=== PATIENT | male | born 1990 ===

== ENCOUNTER 2018-09-24 09:27 | Emergency (ER) | payer OTHER ==
[2018-09-24 09:50] VITALS: TEMP 97.8; BMI 43.0
--- NOTE | 2018-09-24 09:51 | ED PDOC ---
Arrival/HPI - General Chief Complaint: Back Pain Historian: Patient - History of Present Illness Narrative History of Present Illness (Text): 09/24/18 09:51 28 year old male, with a past medical history of appendectomy, who presents to the emergency department complaining of right sided flank pain, 10/10 in severity, that is exacerbated with deep breaths and coughing, onset yesterday. Patient reports yesterday, he felt cramping and spasms in that region, in which he reports taking Tylenol, with no relief. He reports worsened pain when he arrived home and states earlier this morning, he sat on the toilet, and had difficulty getting up. He reports when he did get up, he felt lightheaded. Patient endorses a "watery vomit" earlier this morning due to the amount of water he drank". He denies any fever, chills, nausea, headache, dizziness, chest pain, dysuria, or any other complaints. Time/Duration: 24 hours Symptom Onset: Gradual Symptom Course: Unchanged Activities at Onset: Light Context: Home Past Medical History - Provider Review Nursing Documentation Reviewed: Yes - Infectious Disease Hx of Infectious Diseases: None - Psychiatric Hx Substance Use: No - Surgical History Hx Appendectomy: Yes - Anesthesia Hx Anesthesia: No Family/Social History - Physician Review Nursing Documentation Reviewed: Yes Family/Social History: Unknown Family HX Smoking Status: Never Smoked Hx Alcohol Use: Yes Frequency of alcohol use: Socially Hx Substance Use: No Allergies/Home Meds Allergies/Adverse Reactions: Allergies No Known Allergies Allergy (Verified 09/24/18 09:34) Review of Systems - Physician Review All systems were reviewed & negative as marked: Yes - Review of Systems Constitutional: absent: Fevers Cardiovascular: absent: Chest Pain Gastrointestinal: Vomiting. absent: Abdominal Pain, Diarrhea, Nausea Genitourinary Male: absent: Dysuria Musculoskeletal: Back Pain. absent: Neck Pain Neurological: absent: Headache, Dizziness Physical Exam Vital Signs Reviewed: Yes Vital Signs Temp Pulse Resp BP Pulse Ox 09/24/18 09:36 97.8 F 70 20 120/82 99 Temperature: Afebrile Blood Pressure: Normal Pulse: Regular Respiratory Rate: Normal Appearance: Positive for: Well-Appearing, Non-Toxic, Comfortable, Uncomfortable Pain Distress: None Mental Status: Positive for: Alert and Oriented X 3 - Systems Exam Head: Present: Atraumatic, Normocephalic Pupils: Present: PERRL Extroacular Muscles: Present: EOMI Conjunctiva: Present: Normal Mouth: Present: Moist Mucous Membranes Neck: Present: Normal Range of Motion Respiratory/Chest: Present: Clear to Auscultation, Good Air Exchange. No: Respiratory Distress, Accessory Muscle Use Cardiovascular: Present: Regular Rate and Rhythm, Normal S1, S2. No: Murmurs Abdomen: No: Tenderness, Distention, Peritoneal Signs Back: Present: CVA Tenderness (right sided) Upper Extremity: Present: Normal Inspection. No: Cyanosis, Edema Lower Extremity: Present: Deformity (Gross deformity noted on right knee, no tenderness to palpation). No: Edema Neurological: Present: GCS=15, Speech Normal Skin: Present: Warm, Dry, Normal Color. No: Rashes Psychiatric: Present: Alert, Oriented x 3, Normal Insight, Normal Concentration Medical Decision Making ED Course and Treatment: 09/24/18 09:49 Impression: 28 year old male presents to the emergency department complaining of right sided flank pain, 10/10 in severity, that is exacerbated with deep breaths and coughing, onset yesterday. Differential Diagnosis included but are not limited to: Plan: -- Urinalysis -- CT abd & pelvis -- Toradol -- Valium -- IV Fluids -- UA -- Reassess and disposition Prior Visits: Notes and results from previous visits were reviewed. Progress Notes: - Scribe Statement The provider has reviewed the documentation as recorded by the Mariaibgen Mcdowell All medical record entries made by the Scribe were at my direction and personally dictated by me. I have reviewed the chart and agree that the record accurately reflects my personal performance of the history, physical exam, medical decision making, and the department course for this patient. I have also personally directed, reviewed, and agree with the discharge instructions and disposition. Disposition/Present on Arrival - Present on Arrival Any Indicators Present on Arrival: No History of DVT/PE: No History of Uncontrolled Diabetes: No Urinary Catheter: No History of Decub. Ulcer: No History Surgical Site Infection Following: None - Disposition Have Diagnosis and Disposition been Completed?: Yes Diagnosis: Flank pain Disposition: HOME/ ROUTINE Disposition Time: 13:44 Patient Plan: Discharge Condition: IMPROVED Discharge Instructions (ExitCare): Flank Pain (DC), Nausea and Vomiting, Adult (DC) Print Language: ESTONIAN Additional Instructions: All medical record entries made by the Scribe were at my direction and personally dictated by me. I have reviewed the chart and agree that the record accurately reflects my personal performance of the history, physical exam, medical decision making, and the department course for this patient. I have also personally directed, reviewed, and agree with the discharge instructions and disposition. Please follow up your PCP in 1 week Prescriptions: Cyclobenzaprine [Cyclobenzaprine HCl] 10 mg PO PRN PRN #12 tab PRN Reason: Muscle Spasm Naproxen 500 mg PO Q6H #12 tab Referrals: Marta Knight MD [Medical Doctor] - Follow up with primary [facility] at [facility] [Outside] - Follow up with primary Forms: [facility] (Hebrew), SCHOOL NOTE, WORK NOTE
[2018-09-24 10:18] LABS: URINE APPEARANCE CLEAR (CLEAR); URINE BILIRUBIN NEGATIVE (NEGATIVE); URINE BLOOD NEGATIVE (NEGATIVE); URINE COLOR YELLOW (YELLOW); URINE GLUCOSE (UA) NEGATIVE (NEGATIVE); URINE LEUKOCYTE ESTERASE NEGATIVE Leu/uL (NEGATIVE); URINE PROTEIN NEGATIVE mg/dL (<30 mg/dL); URINE UROBILINOGEN 0.2 E.U./dL (<1 E.U./dL)
--- NOTE | 2018-09-24 11:09 | CT ---
PROCEDURE: CT Abdomen and Pelvis without Oral or IV contrast. HISTORY: r flank pain...r/o kidney stones COMPARISON: None available. TECHNIQUE: Contiguous axial images of the abdomen and pelvis. No oral or IV contrast administered. Coronal and Sagittal reformats generated and reviewed. Radiation dose: Total exam DLP = 1598.24 mGy-cm. This CT exam was performed using one or more of the following dose reduction techniques: Automated exposure control, adjustment of the mA and/or kV according to patient size, and/or use of iterative reconstruction technique. FINDINGS: There is limited evaluation of the solid organs without the administration of IV contrast. LOWER THORAX: No visible consolidation, pleural effusion, or pneumothorax. LIVER: Hypoattenuation of the liver compatible with hepatic steatosis. Approximately 3.5 x 8.7 cm hyperdensity along the anterior right hepatic lobe in posterior aspect left hepatic lobe near the gallbladder fossa; possibly focal fatty sparing. GALLBLADDER AND BILE DUCTS: Unremarkable. PANCREAS: Unremarkable. SPLEEN: 10 mm probable splenule. ADRENALS: Unremarkable. KIDNEYS AND URETERS: No hydronephrosis or obstructing renal calculus. BLADDER: Mildly thick-walled urinary bladder may be exaggerated by under distension. REPRODUCTIVE: Unremarkable. APPENDIX: No secondary signs of acute appendicitis. BOWEL: The stomach is nondistended. Lack of oral contrast limits evaluation for bowel pathology. The bowel loops appear within normal limits of caliber without evidence of intestinal obstruction. PERITONEUM: No significant free fluid. No definite free air. LYMPH NODES: No bulky lymphadenopathy identified. VASCULATURE: No secondary signs of acute appendicitis. No aortic aneurysm. BONES: No acute osseous abnormality is detected. OTHER FINDINGS: None. IMPRESSION: Mildly thick-walled urinary bladder may be exaggerated by under distension. Recommend correlation with urinalysis. Hypoattenuation of the liver compatible with hepatic steatosis. Approximately 3.5 x 8.7 cm hyperdensity along the anterior right hepatic lobe in posterior aspect left hepatic lobe near the gallbladder fossa; possibly focal fatty sparing.
[2018-09-24] MEDS ORDERED: Morphine 4 mg/ml ISec IVP STA (11:33)
[2018-09-24] MEDS ORDERED: Sodium Chloride 0.9% 1,000 ML IV STA (11:36)
[2018-09-24 12:16] VITALS: RESP 18
--- NOTE | 2018-09-24 13:02 | US ---
HISTORY: RUQ r/o gall stones COMPARISON: CT abdomen and pelvis without contrast performed 09/24/18 TECHNIQUE: Sonographic evaluation of the abdomen. FINDINGS: Examination markedly limited by habitus bowel gas. LIVER: Measures 18.8 cm in sagittal dimension. Echogenic liver may be seen in setting of hepatic parenchymal disease or fatty infiltration. No focal hepatic mass identified. The main portal vein appears patent with normal directional flow. No intrahepatic bile duct dilatation. GALLBLADDER: No gallstones. No gallbladder wall thickening. Negative sonographic Adams's sign as assessed by the winder contort operator. COMMON BILE DUCT: Not visualized. PANCREAS: Not well visualized. RIGHT KIDNEY: Measures approximately 11.4 x 6.6 x 5.9 cm. No obstructing calculus or hydronephrosis identified. LEFT KIDNEY: Measures 12.3 x 5.5 x 5.7 cm. No obstructing calculus or hydronephrosis identified. SPLEEN: Measures approximately 11.3 cm. AORTA: Limited views appear unremarkable. IVC: Limited views appear unremarkable. OTHER FINDINGS: None. IMPRESSION: Examination markedly limited by bowel gas and habitus. Echogenic liver may be seen in setting of hepatic parenchymal disease or fatty infiltration.
[2018-09-24 14:15] VITALS: BP 121/77; PULSE 85; O2SAT 100
== END 2018-09-24 14:31 | disposition home or self-care (01) ==
LOC: ED 09:27
DX: R10.9 Unspecified abdominal pain (principal)
CPT/HCPCS: 74176; 76700; 81003; 96361; 96374; 96375; 99284; J1885; J2270; J2405; J7030